=== PATIENT | female | born 1950 | race Caucasian/White ===

== ENCOUNTER 2020-05-23 15:59 | Outpatient (CLI) | payer BC, SELFPAY ==
--- NOTE | ~2020-05-23 | CT_ITS ---
EXAMINATION: CT lung screening DATE: 05/23/2020 16:40 INDICATION: Personal history of nicotine dependence, current smoker with 30 pack year history TECHNIQUE: Computed tomography (CT) of the chest was performed without intravenous contrast. The dose -length product (DLP) was 62.71 mGy-cm. 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 COMPARISON: 05/02/2019 FINDINGS: There is severe emphysema. There are chronic tree-in-bud and nodular opacities of the right lung apex which have decreased since the comparison examination, consistent with infection/inflammat ion. There are peripheral groundglass opacities of the lower lobes, right greater than left. There is no pleural effusion or pneumothorax. Calcified coronary artery atherosclerosis is noted. No patholog ically enlarged thoracic lymph nodes are identified. The heart size is normal. There is severe spondy losis of the upper lumbar spine. Again noted is severe osteoarthritis of the glenohumeral joint with loose bodies in the deep subscapular recess. IMPRESSION: 1. Lung-RADS category 2S: Benign appearance or behavior. Continue annual screening with noncontrast l ow-dose chest CT in 12 months. 2. Groundglass opacities of the lower lobes which could reflect atypical pneumonia. Reviewed, dictated and finalized at location A. STIC ASSOCIATE IMPRESSION: 1. Lung-RADS category 2S: Benign appearance or behavior. Continue annual screen ing with noncontrast low-dose chest CT in 12 months. 2. Groundglass opacities of the lower lobes which could reflect atypical pneumo miguel.
== END 2020-05-23 16:00 | disposition home or self-care (01) ==
PROVIDERS: PCP Internal Medicine; Visit Provider Nurse Practitioner Family
DX: Z12.2 Encounter for screening for malignant neoplasm of respiratory organs (principal); Z87.891 Personal history of nicotine dependence
CPT/HCPCS: G0297

== ENCOUNTER → 2022-11-14 08:23 | Outpatient (CLI) | payer MEDICARE, SELFPAY ==
--- NOTE | ~2022-11-14 | MR_ITS ---
EXAMINATION: MR lumbar spine wo con DATE: 11/14/2022 09:18 INDICATION: Lumbar radiculopathy TECHNIQUE: Magnetic resonance imaging (MRI) of the lumbar spine was performed without intravenous con trast. Sequences included sagittal T2-weighted FSE, sagittal T2-weighted FS FSE, sagittal T1-weighted FSE, and axial T2-weighted FSE. COMPARISON: 04/03/2004 FINDINGS: 40 degrees lumbar levoscoliosis increases from approximately 20 degrees at the time of the prior stud y. 2-3 degree retrolisthesis L1 on L2, for degree retrolisthesis L2 on L3 and L5 on S1. Severe disc h eight loss across L1-L2 to and L4-L5 and with right-sided predominance including associated degenerat shar endplate remodeling at L2-L3 and L3-L4. This results in mild right-sided vertebral body height lo ss at L2-L4 with associated fibrovascular and low signal intensity likely Modic type III degenerative endplate changes. Vertebral body heights are otherwise normal. There is additional moderate left-jacqueline ed predominant disc height loss at T12-L1 and mild left-sided disc height loss at T10-T11 and L5-S1. There are annular fissures at each of the disc spaces from T12-L1 through L5-S1. The conus medullaris terminates at L1-L2. 1 cm T2 hyperintense right renal cyst. The following disc levels are specifical ly discussed: T12-L1: Disc is mildly bulging with superimposed left subarticular zone annular fissure and small dis c extrusion with disc material extending up to 5 mm cephalad to the level of the inferior endplate of T11. There is mild right and severe left facet joint osteoarthritis. There is moderate left and mild right neural foraminal stenosis. There is mild central canal stenosis. L1-L2: Disc is bulging There is moderate right and severe left facet joint osteoarthritis. There is m oderate right and mild left neural foraminal stenosis. There is mild central canal stenosis. L2-L3: Disc is bulging. There is moderate bilateral facet joint osteoarthritis. There is moderate rig ht and mild left neural foraminal stenosis. There is mild central canal stenosis. L3-L4: Disc is bulging with annular fissure and right subarticular zone disc extrusion with disc mate rial extending a few millimeters cephalad and caudal to the level of the endplates. There is severe b ilateral facet joint osteoarthritis. There is moderate right and mild to moderate left neural foramin al stenosis. There is moderate central canal stenosis. L4-L5: Annular fissure and broad-based disc extrusion centrally from foraminal zone to foraminal zone with disc material extending a few millimeters cephalad to the level of the inferior endplate of L4. There is hypertrophy of the ligamentum flavum. There is severe bilateral facet joint osteoarthritis. There is bilateral neural foraminal stenosis. There is severe central canal stenosis. L5-S1: Disc is bulging with annular fissure and small central disc extrusion with disc extending up t o 4 mm caudal to the level of the superior endplate of S1. There is mild right and severe left facet joint osteoarthritis. There is mild right and moderate left neural foraminal stenosis. There is mild central canal stenosis. IMPRESSION: 1. Interval progression of now 40 degrees lumbar levoscoliosis with severe spondylosis. Reviewed, dictated and finalized at location A. IMPRESSION: 1. Interval progression of now 40 degrees lumbar levoscoliosis with severe spon dylosis.
== END ==
PROVIDERS: PCP Student in an Organized Health Care Education/Training Program; Visit Provider Physical Medicine & Rehabilitation
DX: M47.816 Spondylosis without myelopathy or radiculopathy, lumbar region (principal); M41.86 Other forms of scoliosis, lumbar region
CPT/HCPCS: 72148